=== PATIENT | female | born 1945 | race Hispanic/Latino ===

== ENCOUNTER 2017-03-15 16:25 | Inpatient (IN) | payer MEDICARE ==
[2017-03-15] MEDS ORDERED: ZOFRAN IV ONE (18:19)
[2017-03-15] MEDS ORDERED: DILAUDID IV ONE (18:19)
--- NOTE | 2017-03-15 18:35 | Emergency Department Report ---
- General Chief complaint: Skin/Abscess/Foreign Body Stated complaint: ABSCESS ON LOWER ABD AREA/CONT BLEEDING Time Seen by Provider: 03/15/17 18:10 Source: patient Mode of arrival: Wheelchair Limitations: No Limitations - History of Present Illness Initial comments: 71-year-old female with a past medical history stage IV cervical cancer currently under home hospice care without any current chemoradiation treatment, diabetes, GERD, hypertension, with previous gastric bypass, splenectomy, and hysterectomy presents to the Hospital complains of purulent bloody drainage from abdominal mass. Patient has had intra-abdominal mass to her lower abdomen for "a couple of months". Three days ago mass became more irritated and today noticed a copious amount of bloody purulent drainage. Pain is rated 7/10 intensity, constant, worse with palpation. No reports of fever. Hospice care group: [facility] - Related Data Home Medications Medication Instructions Recorded Confirmed Last Taken Levothyroxine [Synthroid] 100 mcg PO QPM 02/07/13 03/15/17 05/31/14 Lovastatin [Altoprev] 10 mg PO QPM 02/07/13 03/15/17 05/31/14 Warfarin [Coumadin] 1 mg PO QDAY 03/15/17 03/15/17 Unknown Warfarin [Coumadin] 5 mg PO QDAY 03/15/17 03/15/17 Unknown Allergies Allergy/AdvReac Type Severity Reaction Status Date / Time No Known Allergies Allergy Verified 06/01/14 14:23 Abscess Boil HPI - HPI Chief Complaint: Skin/Abscess/Foreign Body Stated Complaint: ABSCESS ON LOWER ABD AREA/CONT BLEEDING Time Seen by Provider: 03/15/17 18:10 Home Medications: Home Medications Medication Instructions Recorded Confirmed Last Taken Levothyroxine [Synthroid] 100 mcg PO QPM 02/07/13 03/15/17 05/31/14 Lovastatin [Altoprev] 10 mg PO QPM 02/07/13 03/15/17 05/31/14 Warfarin [Coumadin] 1 mg PO QDAY 03/15/17 03/15/17 Unknown Warfarin [Coumadin] 5 mg PO QDAY 03/15/17 03/15/17 Unknown Allergies/Adverse Reactions: Allergies Allergy/AdvReac Type Severity Reaction Status Date / Time No Known Allergies Allergy Verified 06/01/14 14:23 ED Review of Systems ROS: Stated complaint: ABSCESS ON LOWER ABD AREA/CONT BLEEDING Other details as noted in HPI Comment: All other systems reviewed and negative Other: Constitutional: No fevers chills Eyes: No eye pain visual changes ENT: No ear pain or throat pain Neck: Denies pain Respiratory: Denies cough wheezing shortness of breath Cardiovascular: Denies chest pain, palpitations, syncope GI: Denies nausea, vomiting, diarrhea : Denies dysuria Musculoskeletal: Denies back pain Skin: Denies rash, lesions, erythema Neurologic: Denies headache ED Past Medical Hx - Past Medical History Hx Hypertension: Yes Hx Diabetes: Yes (FOR 1 YR) Hx GERD: Yes Hx Arthritis: Yes Hx Asthma: No - Surgical History Hx Breast Surgery: Yes (SURESH BREAST BX 01/2013 ( CLIPS IN BREASTS) LEFT LUMPECTOMY) Additional Surgical History: GASTRIC BYPASS. SPLEENECTOMY. HYSTERECTOMY - Social History Smoking Status: Former Smoker Substance Use Type: None - Medications Home Medications: Home Medications Medication Instructions Recorded Confirmed Last Taken Type Levothyroxine [Synthroid] 100 mcg PO QPM 02/07/13 03/15/17 05/31/14 History Lovastatin [Altoprev] 10 mg PO QPM 02/07/13 03/15/17 05/31/14 History Warfarin [Coumadin] 1 mg PO QDAY 03/15/17 03/15/17 Unknown History Warfarin [Coumadin] 5 mg PO QDAY 03/15/17 03/15/17 Unknown History ED Physical Exam - General Limitations: No Limitations - Other Other exam information: General: No limitations, patient is alert in no acute distress Head exam: Atraumatic, normocephalic Eyes exam: Normal appearance ENT: Moist mucous membrane, normal oropharynx Neck exam: Normal inspection, full range of motion, no meningismus nontender Respiratory exam: Clear to auscultation bilateral, no wheezes, rales, crackles Cardiovascular: Normal rate and rhythm, normal heart sounds Abdomen: Soft, nondistended, large suprapubic mass with necrotic areas and malodorous drainage. Positive surrounding erythema. Tender to palpation Extremity: Full range of motion normal inspection no deformity Back: Normal Inspection, full range of motion, no tenderness Neurologic: Alert, oriented x3, cranial nerves intact, no motor or sensory deficit Psychiatric: normal affect, normal mood Skin: Warm, dry, intact ED Course Vital Signs 03/15/17 03/15/17 03/15/17 17:47 19:00 19:16 Temperature 97.9 F Pulse Rate 80 Respiratory Rate Blood Pressure 144/57 150/72 140/63 Blood Pressure [Left] O2 Sat by Pulse 100 100 91 Oximetry 03/15/17 03/15/17 19:22 21:39 Temperature Pulse Rate 77 74 Respiratory 18 11 L Rate Blood Pressure 147/72 Blood Pressure 144/57 [Left] O2 Sat by Pulse 100 100 Oximetry - Reevaluation(s) Reevaluation #1: 03/15/17 18:35 Vancomycin, Zosyn, Dilaudid, and Zofran ordered in the ED. Awaiting waiting lab to obtain CT - Consultations Consultation #1: 03/15/17 21:02 Case d/w oracle applications developer Surgeon Dr salinas, she was able to review images. Suggest that mass is likely a tumor implant that is highly vascular with an acute infection. Not amendable to simple I&D. Recommend IMV antibiotics and can evaluate patient tomorrow 23:15 Case d/w hospice nurse with [facility]. Jessica (RN) states she will send someone to rescind hospice status ED Medical Decision Making - Lab Data Result diagrams: 03/15/17 18:18 03/15/17 18:18 Lab Results 03/15/17 03/15/17 Range/Units 18:18 18:18 WBC 13.7 H (4.5-11.0) K/mm3 RBC 2.52 L (3.65-5.03) M/mm3 Hgb 8.1 L (10.1-14.3) gm/dl Hct 25.3 L (30.3-42.9) % MCV 101 H (79-97) fl MCH 32 (28-32) pg MCHC 32 (30-34) % RDW 16.4 H (13.2-15.2) % Plt Count 619 H (140-440) K/mm3 Lymph % (Auto) 14.7 (13.4-35.0) % [place] % (Auto) 10.0 H (0.0-7.3) % Eos % (Auto) 0.5 (0.0-4.3) % Baso % (Auto) 0.4 (0.0-1.8) % Lymph # 2.0 (1.2-5.4) K/mm3 [place] # 1.4 H (0.0-0.8) K/mm3 Eos # 0.1 (0.0-0.4) K/mm3 Baso # 0.0 (0.0-0.1) K/mm3 Seg Neutrophils % 74.4 H (40.0-70.0) % Seg Neutrophils # 10.2 H (1.8-7.7) K/mm3 Sodium 138 (137-145) mmol/L Potassium 4.6 (3.6-5.0) mmol/L Chloride 101.4 (98-107) mmol/L Carbon Dioxide 23 (22-30) mmol/L Anion Gap 18 mmol/L BUN 23 H (7-17) mg/dL Creatinine 0.9 (0.7-1.2) mg/dL Estimated GFR > 60 ml/min BUN/Creatinine Ratio 26 % Glucose 108 H (65-100) mg/dL Calcium 8.6 (8.4-10.2) mg/dL Total Bilirubin 0.30 (0.1-1.2) mg/dL AST 15 (5-40) units/L ALT 9 (7-56) units/L Alkaline Phosphatase 336 H (35-129) units/L Total Protein 6.5 (6.3-8.2) g/dL Albumin 2.7 L (3.9-5) g/dL Albumin/Globulin Ratio 0.7 % - Radiology Data Radiology results: report reviewed ct a/p IV contrast: There is a left superior pubis lobular necrotic adenopathy measuring 8.4X 10 cm and a J since matted inguinal adenopathy measures are 7.2 x 3.9 cm incompletely evaluated in the caudal extent. There may be an ulceration of the overlying skin. Patient has moderate left hydroureteronephrosis with appropriate place left double-J ureteral stent. Medical left lower abdominal/superpubic, inguinal, iliac, and obturator necrotic adenopathy in relation to the patient's cervical carcinoma. Erosion of the anterior cervical and L5 vertebral body. Ai mass measurements in the body of the report. Occlusion of the left common iliac artery stent which is compressed. The left common femoral and iliac vein are likely occluded and appear enlarged and hypodense. Diffuse body wall anasarca likely related to vascular occlusion. Multiple previous bowel resections hepatic metastasis. Persistent moderate pericardial effusion. Ill-defined 6 minute left lower lobe lung nodule - Medical Decision Making Patient is advanced cervical cancer and abdominal wall mass likely represent a lesion secondary to her cancer that is now necrotic and affected. Patient may not be a surgical candidate given advanced stage cancer. IV antibiotics were initiated. Surgery has been consults that it will see patient tomorrow - Differential Diagnosis abscess, necrotic cancer mass, cellulitis Critical Care Time: No Critical care attestation.: If time is entered above; I have spent that time in minutes in the direct care of this critically ill patient, excluding procedure time. ED Disposition Clinical Impression: Metastasis from cervical cancer, Abdominal wall mass, Abdominal wall abscess, Anemia, Elevated platelet count Disposition: OP ADMIT IP TO THIS HOSP Is pt being admited?: Yes Condition: Stable Time of Disposition: 23:23 (Dr Bowling/hosp)
[2017-03-15 18:39] LABS: Basophils % (Auto) 0.4 % (0.0-1.8); Eosinophils % (Auto) 0.5 % (0.0-4.3); Hematocrit 25.3 % (30.3-42.9); Hemoglobin 8.1 gm/dl (10.1-14.3); Mean Corpuscular HGB Conc 32 % (30-34); Mean Corpuscular Hemoglobin 32 pg (28-32); Mean Corpuscular Volume 101 fl (79-97); Platelet Count 619 K/mm3 (140-440); Red Blood Count 2.52 M/mm3 (3.65-5.03); Red Cell Distribution Width 16.4 % (13.2-15.2); White Blood Count 13.7 K/mm3 (4.5-11.0)
[2017-03-15 18:55] LABS: BUN/Creatinine Ratio 26; Blood Urea Nitrogen 23 mg/dL (7-17); Calcium 8.6 mg/dL (8.4-10.2); Carbon Dioxide 23 mmol/L (22-30); Glucose 108 mg/dL (65-100)
[2017-03-15 18:56] LABS: Alanine Aminotransferase 9 units/L (7-56); Albumin 2.7 g/dL (3.9-5); Albumin/Globulin Ratio 0.7 %; Alkaline Phosphatase 336 units/L (35-129); Anion Gap 18 mmol/L; Chloride 101.4 mmol/L (98-107); Potassium 4.6 mmol/L (3.6-5.0); Sodium 138 mmol/L (137-145); Total Protein 6.5 g/dL (6.3-8.2)
[2017-03-15] MEDS ORDERED: ZOSYN/NS 4.5GM/100ML 4.5 GM/100 ML VIAL IV ONE (19:00)
[2017-03-15] MEDS ORDERED: VANCOMYCIN/NS 1 GM/250 ML 1 GM/250 ML BAG IV ONE (19:00)
--- NOTE | 2017-03-15 20:26 | Cat Scan Report ---
FINAL REPORT EXAM: CT ABDOMEN PELVIS W CON HISTORY: lower abd mass/abscess hx stage IV cervical cancer TECHNIQUE: Axial images were performed from the lung bases to the pubic symphysis following administration of IV contrast. Multiplanar reformats are performed on the acquisition scanner. Comparison: 03/08/2013 FINDINGS: Cattle Manager image demonstrates left double-J ureteral stent. There is bilateral basal scar. There is an ill-defined 6 millimeter left lower lobe noncalcified pulmonary nodule. Again identified is moderate pericardial effusion. There are multiple hepatic hypodense lesions compatible with metastatic disease, the largest in the right lobe measuring 3.5 centimeters. Surgically absent spleen. Unremarkable and normally enhancing pancreas. Innumerable gallstones dependently throughout gallbladder. Fullness of the bilateral adrenal glands without discrete mass lesion. Unremarkable right kidney. Moderate left hydro nephrosis with left double-J ureteral stent in the appropriate position. Urinary bladder is minimally distended. There is anasarca of the left body wall. There has been previous gastric bypass with suture margin. There is been previous bowel resection with colonic suture margin. The aorta is atherosclerotic but not aneurysmal. Surgically absent uterus. There is a necrotic lobulated 5.2 x 3.5 centimeter left obturator lymph node and multiple necrotic lymph nodes of the left external iliac region measuring up to 3.6 centimeters. These lymph nodes surround a left common iliac stent and cause mass impression on it. It is likely occluded. There is retroperitoneal/presacral 5.2 x 3.6 centimeter mass eroding the anterior sacrum and L5 vertebral body extending to the midline. There is extensive matted left groin adenopathy measuring up to 10 centimeters with varicosities. There is left superior mons pubis adenopathy measuring 8.4 centimeters and adjacent matted adenopathy measuring 7.2 x 3.9 centimeters. The left common femoral vein is enlarged and hypodense, likely thrombosed. IMPRESSION: Moderate left hydroureteronephrosis with appropriately placed left double-J ureteral stent. Matted left lower abdominal/suprapubic, inguinal, iliac, and obturator necrotic adenopathy in relation to patient's cervical carcinoma. There is erosion of the anterior sacrum and L5 vertebral body. Ai mass measurements in body of report above. There is an occluded left common iliac artery stent which is compressed. The left common femoral and iliac vein are likely occluded and appear enlarged and hypodense. There is diffuse body wall anasarca on the left likely related to vascular occlusion. Multiple previous bowel resections. Innumerable hepatic metastases, largest in the right lobe measures 3.5 centimeters. Ill-defined 6 millimeter left lower lobe lung nodule. Persistent moderate pericardial effusion.
[2017-03-15] MEDS ORDERED: MORPHINE IV ONE (23:54)
[2017-03-15] MEDS ORDERED: MILK OF MAGNESIA PO PRN (23:56)
[2017-03-15] MEDS ORDERED: TYLENOL PO PRN (23:56)
[2017-03-15] MEDS ORDERED: DULCOLAX PR PRN (23:56)
[2017-03-15] MEDS ORDERED: ZOFRAN IV PRN (23:56)
--- NOTE | 2017-03-15 23:56 | History and Physical Report ---
History of Present Illness Date of examination: 03/15/17 History of present illness: 71-year-old woman history of hypertension, diabetes, hyperlipidemia, hypothyroidism, breast cancer, cervical cancer, chronic swelling of the left leg comes to emergency room because of a mass did develop on the abdomen over the last 1 month. The patient has been on hospice but has been discharged from hospice today because of excessive drainage from the abdominal mass. She states she has purulent, bloody discharge. No intervention has been done for this abdominal mass. Review Of Systems: Constitutional: no weight loss Ears, eyes, nose, mouth and throat: no nasal congestion, no nasal discharge, no sinus pressure, blurry vision, diplopia Neck: No neck pain or rigidity. Cardiovascular: no chest pain, orthopnea, palpitations Respiratory: No shortness of breath, cough Gastrointestinal: no abdominal pain, hematochezia Genitourinary : no dysuria, frequency , hematuria Musculoskeletal: no muscle ache Integumentary: no rash, no pruritis Neurological: no parathesias, focal weakness Endocrine: no cold or heat intolerance, no polyuria or polydipsia Hematologic/Lymphatic: no easy bruising, no easy bleeding, no gland swelling Allergic/Immunologic: no urticaria, no angioedema. PAST MEDICAL HISTORY:hypertension, diabetes, hyperlipidemia, hypothyroidism, breast cancer, cervical cancer PAST SURGICAL HISTORY: Gastric bypass, hysterectomy, splenectomy, lumpectomy FAMILY HISTORY: Hypertension SOCIAL HISTORY: Denies alcohol, tobacco, drugs Medications and Allergies Allergies Allergy/AdvReac Type Severity Reaction Status Date / Time No Known Allergies Allergy Verified 06/01/14 14:23 Home Medications Medication Instructions Recorded Confirmed Last Taken Type Levothyroxine [Synthroid] 125 mcg PO QAM 02/07/13 03/16/17 05/31/14 History Lovastatin [Altoprev] 10 mg PO QDAY 02/07/13 03/16/17 05/31/14 History Dorzolamide HCl/Timolol Maleat 1 drop OP BID 03/16/17 03/16/17 Unknown History [Cosopt Eye Drops] HYDROcodone/ACETAMINOPHEN 1 each PO Q6HR PRN 03/16/17 03/16/17 Unknown History [Hydrocodon-Acetaminophen 5-325] Latanoprost 0.005% [Xalatan 0.005%] 2 drop OP QPM 03/16/17 03/16/17 Unknown History Sennosides [Senna] 8.6 mg PO QHS PRN 03/16/17 03/16/17 Unknown History Diltiazem HCl [Diltiazem 24Hr Cd] 240 mg PO QDAY MDD 240 03/17/17 03/17/17 Unknown History Exam - Physical Exam Narrative exam: Gen. appearance: Patient lying in bed in no acute distress HEENT: Normocephalic/atraumatic, pupils equal round reactive to light, extra alkaline movement intact, no scleral icterus, no JVD or thyromegaly or nodule, neck is supple, mucous membrane moist, no erythema or exudate Heart: S1-S2, regular rate and rhythm Lungs: Clear to auscultation bilateral breathing comfortable Abdomen: Positive bowel sounds, raised abdominal mass with necrotic center to, tender, nondistended, no organomegaly Extremities: Left leg swollen , cyanosis, clubbing Neuro:: Oriented 3 , cranial nerves II-12 intact, speech, motor intact Skin: No rash, nodules, warm dry - Constitutional Vitals: Temp Pulse Resp BP Pulse Ox 97.9 F 74 11 L 147/72 100 03/15/17 17:47 03/15/17 21:39 03/15/17 21:39 03/15/17 21:39 03/15/17 21:39 Results - Labs CBC & Chem 7: 03/19/17 04:54 03/19/17 04:54 Labs: Abnormal lab results 03/15/17 03/15/17 Range/Units 18:18 18:18 WBC 13.7 H (4.5-11.0) K/mm3 RBC 2.52 L (3.65-5.03) M/mm3 Hgb 8.1 L (10.1-14.3) gm/dl Hct 25.3 L (30.3-42.9) % MCV 101 H (79-97) fl RDW 16.4 H (13.2-15.2) % Plt Count 619 H (140-440) K/mm3 [place] % (Auto) 10.0 H (0.0-7.3) % [place] # 1.4 H (0.0-0.8) K/mm3 Seg Neutrophils % 74.4 H (40.0-70.0) % Seg Neutrophils # 10.2 H (1.8-7.7) K/mm3 BUN 23 H (7-17) mg/dL Glucose 108 H (65-100) mg/dL Alkaline Phosphatase 336 H (35-129) units/L Albumin 2.7 L (3.9-5) g/dL - Imaging and Cardiology EKG: image reviewed CT scan - abdomen: report reviewed CT scan - pelvis: report reviewed Assessment and Plan Assessment Abdominal wall mass Metastatic cervical cancer Hypertension Diabetes Hyperlipidemia Breast cancer Hypothyroidism Chronic swelling of left leg Plan Admit to medicine Continue IV Zosyn, surgical consult Check fingersticks and initiate insulin scale Continue appropriate outpatient medications DVT prophylaxis
[2017-03-16] MEDS ORDERED: D50W (25GM) Vial IV PRN (00:20)
[2017-03-16] MEDS: MORPHINE IV PRN ×2 (01:56→12:20)
[2017-03-16] MEDS: ZOSYN/NS 3.375GM/50ML 3.375 GM/50 ML BAG IV SCH ×3 (05:42→22:35)
[2017-03-16 06:04] LABS: Basophils % (Auto) 0.6 % (0.0-1.8); Eosinophils % (Auto) 2.1 % (0.0-4.3); Hematocrit 20.7 % (30.3-42.9); Hemoglobin 6.6 gm/dl (10.1-14.3); Mean Corpuscular HGB Conc 32 % (30-34); Mean Corpuscular Hemoglobin 32 pg (28-32); Mean Corpuscular Volume 100 fl (79-97); Platelet Count 533 K/mm3 (140-440); Red Blood Count 2.08 M/mm3 (3.65-5.03); Red Cell Distribution Width 16.7 % (13.2-15.2); White Blood Count 11.8 K/mm3 (4.5-11.0)
[2017-03-16 06:23] LABS: Anion Gap 17 mmol/L; BUN/Creatinine Ratio 24; Blood Urea Nitrogen 22 mg/dL (7-17); Calcium 8.1 mg/dL (8.4-10.2); Carbon Dioxide 23 mmol/L (22-30); Chloride 103.5 mmol/L (98-107); Glucose 90 mg/dL (65-100); Potassium 4.3 mmol/L (3.6-5.0); Sodium 139 mmol/L (137-145)
[2017-03-16] MEDS ORDERED: NACL 0.9% 500 ML 500 ML IV ONE (11:00)
[2017-03-16] MEDS: NOVOLOG SUB-Q SCH ×4 (11:30→22:37)
[2017-03-16] MEDS ORDERED: Fluarix Quad 2017-2018(36 MOS+ IM ONE (12:00)
--- NOTE | 2017-03-16 13:15 | Consultation ---
History of Present Illness Consult date: 03/16/17 Chief complaint: abd wall mass - History of present illness History of present illness: 71-year-old female with a history of metastatic ovarian and cervical cancer diagnosed 2 years ago, status post total hysterectomy with bilateral salpingo- oophorectomy, radiation, chemotherapy, currently on hospice presents to the emergency room with complaints of an abdominal mass that's bleeding. She noted a mass several weeks ago and noted that it had gotten worse over the last week. Now it has started to ooze bloody fluid. She denies leakage of purulent material. She's been tolerating regular diet. She denies abdominal pain. She also complains of swelling of her left leg. No fevers, chills, chest pain, shortness of breath. She denies lightheadedness or dizziness. She's been ambulating. Past History Past Medical History: cancer (ovarian, cervical), hyperlipidemia, hypothyroidism Past Surgical History: hysterectomy, Other (bilateral salpingoophorectomy, port a cath) Social history: no significant social history Family history: no significant family history Medications and Allergies Allergies Allergy/AdvReac Type Severity Reaction Status Date / Time No Known Allergies Allergy Verified 06/01/14 14:23 Home Medications Medication Instructions Recorded Confirmed Last Taken Type Levothyroxine [Synthroid] 125 mcg PO QAM 02/07/13 03/16/17 05/31/14 History Lovastatin [Altoprev] 10 mg PO QDAY 02/07/13 03/16/17 05/31/14 History Warfarin [Coumadin] 2.5 mg PO QDAY 03/15/17 03/16/17 Unknown History Warfarin [Coumadin] 5 mg PO QDAY 03/15/17 03/15/17 Unknown History Dorzolamide HCl/Timolol Maleat 1 drop OP BID 03/16/17 03/16/17 Unknown History [Cosopt Eye Drops] HYDROcodone/ACETAMINOPHEN 1 each PO Q6HR PRN 03/16/17 03/16/17 Unknown History [Hydrocodon-Acetaminophen 5-325] Latanoprost 0.005% [Xalatan 0.005%] 2 drop OP QPM 03/16/17 03/16/17 Unknown History Sennosides [Senna] 8.6 mg PO QHS PRN 03/16/17 03/16/17 Unknown History Active Meds: Active Medications Acetaminophen (Tylenol) 650 mg PO Q4H PRN PRN Reason: Pain MILD(1-3)/Fever >100.5/SARABIA Bisacodyl (Dulcolax) 10 mg UT QDAY PRN PRN Reason: Constipation unrelieved by MOM Dextrose (D50w (25gm) Vial) 25 gm IV PRN PRN PRN Reason: Hypoglycemia Piperacillin Sod/Tazobactam Sod (Zosyn/Ns 3.375gm/50ml) 3.375 gm in 50 mls @ 100 mls/hr IV Q8HR ANU PRN Reason: Protocol Last Admin: 03/16/17 05:42 Dose: 100 mls/hr Insulin Aspart (Novolog) 0 units SUB-Q ACHS ANU PRN Reason: Protocol Last Admin: 03/16/17 12:37 Dose: Not Given Magnesium Hydroxide (Milk Of Magnesia) 30 ml PO Q4H PRN PRN Reason: Constipation Morphine Sulfate (Morphine) 2 mg IV Q4H PRN PRN Reason: Pain, Moderate (4-6) Last Admin: 03/16/17 12:20 Dose: 2 mg Ondansetron HCl (Zofran) 4 mg IV Q8H PRN PRN Reason: N/V unrelieved by Reglan Review of Systems All systems: negative (see hpi) Exam Vital Signs Temp Pulse BP Pulse Ox 97.9 F 80 144/57 100 03/15/17 17:47 03/15/17 17:47 03/15/17 17:47 03/15/17 17:47 Narrative exam: Gen: AAOx3. NAD CV: S1, S2+ Resp: No audible wheezes Abd: soft, NT, ND. Large approx 8 cm soft mass of lower abdomen/suprapubic region with serosanguenous fluid oozing from skin, 4-5 cm abdominal wound ulcerated skinn overlying mass with surrounding redness. Ext: LLE edema, nonpitting. Results - Labs 03/16/17 05:38 03/16/17 05:38 Abnormal lab results 03/15/17 03/15/17 03/16/17 Range/Units 18:18 18:18 05:38 WBC 13.7 H 11.8 H (4.5-11.0) K/mm3 RBC 2.52 L 2.08 L (3.65-5.03) M/mm3 Hgb 8.1 L 6.6 L (10.1-14.3) gm/dl Hct 25.3 L 20.7 L (30.3-42.9) % MCV 101 H 100 H (79-97) fl RDW 16.4 H 16.7 H (13.2-15.2) % Plt Count 619 H 533 H (140-440) K/mm3 [place] % (Auto) 10.0 H 12.4 H (0.0-7.3) % [place] # 1.4 H 1.5 H (0.0-0.8) K/mm3 Seg Neutrophils % 74.4 H (40.0-70.0) % Seg Neutrophils # 10.2 H (1.8-7.7) K/mm3 BUN 23 H (7-17) mg/dL Glucose 108 H (65-100) mg/dL POC Glucose (70-105) Calcium (8.4-10.2) mg/dL Alkaline Phosphatase 336 H (35-129) units/L Albumin 2.7 L (3.9-5) g/dL Crossmatch 03/16/17 03/16/17 03/16/17 Range/Units 05:38 11:14 11:20 WBC (4.5-11.0) K/mm3 RBC (3.65-5.03) M/mm3 Hgb (10.1-14.3) gm/dl Hct (30.3-42.9) % MCV (79-97) fl RDW (13.2-15.2) % Plt Count (140-440) K/mm3 [place] % (Auto) (0.0-7.3) % [place] # (0.0-0.8) K/mm3 Seg Neutrophils % (40.0-70.0) % Seg Neutrophils # (1.8-7.7) K/mm3 BUN 22 H (7-17) mg/dL Glucose (65-100) mg/dL POC Glucose 107 H (70-105) Calcium 8.1 L (8.4-10.2) mg/dL Alkaline Phosphatase (35-129) units/L Albumin (3.9-5) g/dL Crossmatch See Detail Diabetes panel 03/15/17 03/16/17 Range/Units 18:18 05:38 Sodium 138 139 (137-145) mmol/L Potassium 4.6 4.3 (3.6-5.0) mmol/L Chloride 101.4 103.5 (98-107) mmol/L Carbon Dioxide 23 23 (22-30) mmol/L BUN 23 H 22 H (7-17) mg/dL Creatinine 0.9 0.9 (0.7-1.2) mg/dL Glucose 108 H 90 (65-100) mg/dL Calcium 8.6 8.1 L (8.4-10.2) mg/dL AST 15 (5-40) units/L ALT 9 (7-56) units/L Alkaline Phosphatase 336 H (35-129) units/L Total Protein 6.5 (6.3-8.2) g/dL Albumin 2.7 L (3.9-5) g/dL Calcium panel 03/15/17 03/16/17 Range/Units 18:18 05:38 Calcium 8.6 8.1 L (8.4-10.2) mg/dL Albumin 2.7 L (3.9-5) g/dL Pituitary panel 03/15/17 03/16/17 Range/Units 18:18 05:38 Sodium 138 139 (137-145) mmol/L Potassium 4.6 4.3 (3.6-5.0) mmol/L Chloride 101.4 103.5 (98-107) mmol/L Carbon Dioxide 23 23 (22-30) mmol/L BUN 23 H 22 H (7-17) mg/dL Creatinine 0.9 0.9 (0.7-1.2) mg/dL Glucose 108 H 90 (65-100) mg/dL Calcium 8.6 8.1 L (8.4-10.2) mg/dL Adrenal panel 03/15/17 03/16/17 Range/Units 18:18 05:38 Sodium 138 139 (137-145) mmol/L Potassium 4.6 4.3 (3.6-5.0) mmol/L Chloride 101.4 103.5 (98-107) mmol/L Carbon Dioxide 23 23 (22-30) mmol/L BUN 23 H 22 H (7-17) mg/dL Creatinine 0.9 0.9 (0.7-1.2) mg/dL Glucose 108 H 90 (65-100) mg/dL Calcium 8.6 8.1 L (8.4-10.2) mg/dL Total Bilirubin 0.30 (0.1-1.2) mg/dL AST 15 (5-40) units/L ALT 9 (7-56) units/L Alkaline Phosphatase 336 H (35-129) units/L Total Protein 6.5 (6.3-8.2) g/dL Albumin 2.7 L (3.9-5) g/dL - Imaging CT scan - abdomen: report reviewed (1. there is left superior pubis lobular necrotic adenopathy measuring 8cm x10cm and adjacent matted inguinal adenopathy measuring 7.2 x 3.9 cm, incompletely evaluated in the caudal extent. There may be ulceration of the overlying skin), image reviewed CT scan - pelvis: report reviewed, image reviewed Assessment and Plan 71 yo F with 1. abdominal wall mass - necrotic lymphadenopathy related to patient's hx of metastatic ca 2. anemia 3. chronic pain Plan: 1. continue reg diet 2. conservative management for abdominal wall necrotic lymphadenopathy 3. wound care consult 4. dc iv ABX. Unlikely that this mass is infected 5. 1 unit PRBC ordered by primary team 6. recommend oncology consult 7. discussed plan with patient and her sister 8. patient may return to hospice once medically stable
[2017-03-16] MEDS ORDERED: NACL 0.9% 250ML 250 ML ONE (13:34)
--- NOTE | 2017-03-16 13:41 | Progress Note ---
Assessment and Plan Assessment and plan: 71-year-old female with a past medical history stage IV cervical cancer currently under home hospice care without any current chemoradiation treatment, diabetes, GERD, hypertension, with previous gastric bypass, splenectomy, and hysterectomy presents to the Hospital complains of purulent bloody drainage from abdominal mass. Acute blood loss anemia Secondary to abdominal wall mass that ruptured (wound ) Patient H&H dropped to 6.3 and transfused1 unit PRBC. hemodynamically stable Closely monitor CBC Sepsis Secondary to abdominal wound Flow Blood cultures Continue IV fluid Continue empiric IV Zosyn Abdominal wall mass secondary to stage cervical cancer The patient is on hospice Metastatic cervical cancer Continue on hospice Diabetes mellitus Accu-Chek before meals and at bedtime Sliding scale insulin/NovoLog ADA carbohydrate consistent diet Hypertensive urgency Continue home antihypertensive medications Closely monitor blood pressure Hyperlipidemia Continue on home antilipid agents Breast cancer continue on current therapy Hypothyroidism Resume Synthroid Chronic swelling of left leg Continue current therapy DVT prophylaxis -Heparin History Interval history: Patient denies having pain at preset time. Labs and nursing notes reviewed. Hospitalist Physical - Constitutional Vitals: Temp Pulse Resp BP Pulse Ox 98.4 F 78 20 126/58 100 03/16/17 07:30 03/16/17 07:51 03/16/17 12:20 03/16/17 07:30 03/16/17 07:51 General appearance: Present: no acute distress - EENT Eyes: Present: PERRL ENT: hearing intact - Neck Neck: Present: supple - Respiratory Respiratory effort: normal Respiratory: bilateral: CTA - Cardiovascular Rhythm: regular Heart Sounds: Present: S1 & S2 - Abdominal General gastrointestinal: soft, mass (with bleeding ), other - Integumentary Integumentary: Present: clear, warm, dry - Psychiatric Psychiatric: appropriate mood/affect - Neurologic Neurologic: moves all extremities - Allied Health Allied health notes reviewed: nursing Results - Labs CBC & Chem 7: 03/16/17 05:38 03/16/17 05:38 Labs: Laboratory Last Values WBC 11.8 K/mm3 (4.5-11.0) H 03/16/17 05:38 RBC 2.08 M/mm3 (3.65-5.03) L 03/16/17 05:38 Hgb 6.6 gm/dl (10.1-14.3) L 03/16/17 05:38 Hct 20.7 % (30.3-42.9) L 03/16/17 05:38 MCV 100 fl (79-97) H 03/16/17 05:38 MCH 32 pg (28-32) 03/16/17 05:38 MCHC 32 % (30-34) 03/16/17 05:38 RDW 16.7 % (13.2-15.2) H 03/16/17 05:38 Plt Count 533 K/mm3 (140-440) H 03/16/17 05:38 Lymph % (Auto) 24.2 % (13.4-35.0) 03/16/17 05:38 [place] % (Auto) 12.4 % (0.0-7.3) H 03/16/17 05:38 Eos % (Auto) 2.1 % (0.0-4.3) 03/16/17 05:38 Baso % (Auto) 0.6 % (0.0-1.8) 03/16/17 05:38 Lymph # 2.9 K/mm3 (1.2-5.4) 03/16/17 05:38 [place] # 1.5 K/mm3 (0.0-0.8) H 03/16/17 05:38 Eos # 0.3 K/mm3 (0.0-0.4) 03/16/17 05:38 Baso # 0.1 K/mm3 (0.0-0.1) 03/16/17 05:38 Seg Neutrophils % 60.7 % (40.0-70.0) 03/16/17 05:38 Seg Neutrophils # 7.2 K/mm3 (1.8-7.7) 03/16/17 05:38 Sodium 139 mmol/L (137-145) 03/16/17 05:38 Potassium 4.3 mmol/L (3.6-5.0) 03/16/17 05:38 Chloride 103.5 mmol/L (98-107) 03/16/17 05:38 Carbon Dioxide 23 mmol/L (22-30) 03/16/17 05:38 Anion Gap 17 mmol/L 03/16/17 05:38 BUN 22 mg/dL (7-17) H 03/16/17 05:38 Creatinine 0.9 mg/dL (0.7-1.2) 03/16/17 05:38 Estimated GFR > 60 ml/min 03/16/17 05:38 BUN/Creatinine Ratio 24 % 03/16/17 05:38 Glucose 90 mg/dL (65-100) 03/16/17 05:38 POC Glucose 107 (70-105) H 03/16/17 11:14 Calcium 8.1 mg/dL (8.4-10.2) L 03/16/17 05:38 Total Bilirubin 0.30 mg/dL (0.1-1.2) 03/15/17 18:18 AST 15 units/L (5-40) 03/15/17 18:18 ALT 9 units/L (7-56) 03/15/17 18:18 Alkaline Phosphatase 336 units/L (35-129) H 03/15/17 18:18 Total Protein 6.5 g/dL (6.3-8.2) 03/15/17 18:18 Albumin 2.7 g/dL (3.9-5) L 03/15/17 18:18 Albumin/Globulin Ratio 0.7 % 03/15/17 18:18 Blood Type O POSITIVE 03/16/17 11:20 Antibody Screen Negative 03/16/17 11:20 Crossmatch See Detail 03/16/17 11:20
[2017-03-16] MEDS: NORCO 10/325 PO PRN ×2 (18:27→22:36)
[2017-03-16 21:55] LABS: Hematocrit 24.1 % (30.3-42.9); Hemoglobin 7.9 gm/dl (10.1-14.3)
[2017-03-17 05:11] LABS: Basophils % (Auto) 0.2 % (0.0-1.8); Hematocrit 24.8 % (30.3-42.9); Hemoglobin 7.9 gm/dl (10.1-14.3); Mean Corpuscular HGB Conc 32 % (30-34); Mean Corpuscular Hemoglobin 31 pg (28-32); Mean Corpuscular Volume 98 fl (79-97); Platelet Count 523 K/mm3 (140-440); Red Blood Count 2.53 M/mm3 (3.65-5.03); Red Cell Distribution Width 17.3 % (13.2-15.2); White Blood Count 12.6 K/mm3 (4.5-11.0)
[2017-03-17 05:29] LABS: Calcium 8.5 mg/dL (8.4-10.2); Chloride 101.8 mmol/L (98-107); Potassium 4.8 mmol/L (3.6-5.0)
[2017-03-17] MEDS: ZOSYN/NS 3.375GM/50ML 3.375 GM/50 ML BAG IV SCH ×3 (06:36→22:10)
[2017-03-17] MEDS: NORCO 10/325 PO PRN ×3 (06:37→22:11)
[2017-03-17] MEDS: NOVOLOG SUB-Q SCH ×4 (08:30→22:15)
--- NOTE | 2017-03-17 13:31 | Progress Note ---
Assessment and Plan Assessment and plan: Patient is a 71-year-old female with a past medical history stage IV cervical cancer currently under home hospice care without any current chemoradiation treatment, diabetes, GERD, hypertension, with previous gastric bypass, splenectomy, and hysterectomy presents to the Hospital complains of purulent bloody drainage from abdominal mass. Abdominal wall mass Secondary to stage cervical cancer Patient has abdominal mass that ruptured. Wound care consult Patient is on hospice Mild Acute renal failure Gently hydration with IV fluid Repeat BMP in the AM Acute blood loss anemia Secondary to abdominal wall mass that ruptured (wound ) Patient H&H dropped to 6.3 and transfused1 unit PRBC. hemodynamically stable Closely monitor CBC Sepsis Secondary to abdominal wound Flow Blood cultures Continue IV fluid Continue empiric IV Zosyn Metastatic cervical cancer Continue on hospice Diabetes mellitus Accu-Chek before meals and at bedtime Sliding scale insulin/NovoLog ADA carbohydrate consistent diet Hypertensive urgency Continue home antihypertensive medications Closely monitor blood pressure Hyperlipidemia Continue on home antilipid agents Breast cancer continue on current therapy Hypothyroidism Resume Synthroid Chronic swelling of left leg Continue current therapy DVT prophylaxis -Heparin History Interval history: Patient denies having pain at present time; Lab and nursing notes reviewed. Hospitalist Physical - Constitutional Vitals: Temp Pulse Resp BP Pulse Ox 98.8 F 73 20 138/50 97 03/17/17 07:36 03/17/17 07:36 03/17/17 07:37 03/17/17 07:36 03/17/17 07:36 General appearance: Present: no acute distress - EENT Eyes: Present: PERRL ENT: hearing intact - Neck Neck: Present: supple - Respiratory Respiratory effort: normal Respiratory: bilateral: CTA - Cardiovascular Rhythm: regular Heart Sounds: Present: S1 & S2 - Abdominal General gastrointestinal: soft, non-tender, other (abdominal wound with bloody drainage covered with gauze dressing.) - Integumentary Integumentary: Present: clear, warm, dry - Psychiatric Psychiatric: appropriate mood/affect - Neurologic Neurologic: moves all extremities - Allied Health Allied health notes reviewed: nursing Results - Labs CBC & Chem 7: 03/17/17 04:17 12 04:17 Labs: Laboratory Last Values WBC 12.6 K/mm3 (4.5-11.0) H 03/17/17 04:17 RBC 2.53 M/mm3 (3.65-5.03) L 03/17/17 04:17 Hgb 7.9 gm/dl (10.1-14.3) L 03/17/17 04:17 Hct 24.8 % (30.3-42.9) L 03/17/17 04:17 MCV 98 fl (79-97) H 03/17/17 04:17 MCH 31 pg (28-32) 03/17/17 04:17 MCHC 32 % (30-34) 03/17/17 04:17 RDW 17.3 % (13.2-15.2) H 03/17/17 04:17 Plt Count 523 K/mm3 (140-440) H 03/17/17 04:17 Lymph % (Auto) 27.4 % (13.4-35.0) 03/17/17 04:17 [place] % (Auto) 12.6 % (0.0-7.3) H 03/17/17 04:17 Eos % (Auto) 3.0 % (0.0-4.3) 03/17/17 04:17 Baso % (Auto) 0.2 % (0.0-1.8) 03/17/17 04:17 Lymph # 3.5 K/mm3 (1.2-5.4) 03/17/17 04:17 [place] # 1.6 K/mm3 (0.0-0.8) H 03/17/17 04:17 Eos # 0.4 K/mm3 (0.0-0.4) 03/17/17 04:17 Baso # 0.0 K/mm3 (0.0-0.1) 03/17/17 04:17 Seg Neutrophils % 56.8 % (40.0-70.0) 03/17/17 04:17 Seg Neutrophils # 7.2 K/mm3 (1.8-7.7) 03/17/17 04:17 Sodium 139 mmol/L (137-145) 03/17/17 04:17 Potassium 4.8 mmol/L (3.6-5.0) 03/17/17 04:17 Chloride 101.8 mmol/L (98-107) 03/17/17 04:17 Carbon Dioxide 24 mmol/L (22-30) 03/17/17 04:17 Anion Gap 18 mmol/L 03/17/17 04:17 BUN 19 mg/dL (7-17) H 03/17/17 04:17 Creatinine 1.0 mg/dL (0.7-1.2) 03/17/17 04:17 Estimated GFR 55 ml/min 03/17/17 04:17 BUN/Creatinine Ratio 19 % 03/17/17 04:17 Glucose 81 mg/dL (65-100) 03/17/17 04:17 POC Glucose 102 (70-105) 03/17/17 11:43 Calcium 8.5 mg/dL (8.4-10.2) 03/17/17 04:17 Total Bilirubin 0.30 mg/dL (0.1-1.2) 03/15/17 18:18 AST 15 units/L (5-40) 03/15/17 18:18 ALT 9 units/L (7-56) 03/15/17 18:18 Alkaline Phosphatase 336 units/L (35-129) H 03/15/17 18:18 Total Protein 6.5 g/dL (6.3-8.2) 03/15/17 18:18 Albumin 2.7 g/dL (3.9-5) L 03/15/17 18:18 Albumin/Globulin Ratio 0.7 % 03/15/17 18:18 Blood Type O POSITIVE 03/16/17 11:20 Antibody Screen Negative 03/16/17 11:20 Crossmatch See Detail 03/16/17 11:20
[2017-03-17] MEDS: NACL 0.9% 1000 ML 500 ML IV SCH (22:15)
[2017-03-18 00:37] LABS: Bilirubin,Urine NEG (Negative); Blood,Urine MOD (Negative); Ketones,Urine NEG (Negative); Leukocyte Esterase,Urine NEG (Negative); Nitrite,Urine NEG (Negative); Protein,Urine <15 mg/dL mg/dL (Negative); Urobilinogen,Urine < 2.0 mg/dL (<2.0); WBC,Urine < 1.0 /HPF (0.0-6.0)
[2017-03-18] MEDS: NORCO 10/325 PO PRN ×4 (04:34→20:16)
[2017-03-18 05:28] LABS: Basophils % (Auto) 0.4 % (0.0-1.8); Eosinophils % (Auto) 2.7 % (0.0-4.3); Hematocrit 24.6 % (30.3-42.9); Hemoglobin 7.8 gm/dl (10.1-14.3); Mean Corpuscular HGB Conc 32 % (30-34); Mean Corpuscular Hemoglobin 32 pg (28-32); Mean Corpuscular Volume 99 fl (79-97); Platelet Count 460 K/mm3 (140-440); Red Blood Count 2.48 M/mm3 (3.65-5.03); Red Cell Distribution Width 17.2 % (13.2-15.2); White Blood Count 13.3 K/mm3 (4.5-11.0)
[2017-03-18 05:45] LABS: Calcium 8.5 mg/dL (8.4-10.2); Chloride 100.9 mmol/L (98-107); Potassium 5.3 mmol/L (3.6-5.0)
[2017-03-18] MEDS: ZOSYN/NS 3.375GM/50ML 3.375 GM/50 ML BAG IV SCH ×3 (06:50→22:34)
[2017-03-18] MEDS: NOVOLOG SUB-Q SCH ×4 (08:00→23:18)
[2017-03-18] MEDS ORDERED: KIONEX PO NR (10:00)
[2017-03-18] MEDS: NACL 0.9% 1000 ML 500 ML IV SCH (18:54)
[2017-03-19] MEDS: NORCO 10/325 PO PRN ×3 (04:30→13:16)
[2017-03-19] MEDS: ZOSYN/NS 3.375GM/50ML 3.375 GM/50 ML BAG IV SCH ×2 (05:18→13:17)
[2017-03-19 05:57] LABS: Basophils % (Auto) 0.3 % (0.0-1.8); Eosinophils % (Auto) 2.5 % (0.0-4.3); Hematocrit 23.5 % (30.3-42.9); Hemoglobin 7.6 gm/dl (10.1-14.3); Mean Corpuscular HGB Conc 32 % (30-34); Mean Corpuscular Hemoglobin 33 pg (28-32); Mean Corpuscular Volume 101 fl (79-97); Platelet Count 336 K/mm3 (140-440); Red Blood Count 2.33 M/mm3 (3.65-5.03); Red Cell Distribution Width 17.9 % (13.2-15.2); White Blood Count 12.1 K/mm3 (4.5-11.0)
[2017-03-19 06:09] LABS: Chloride 103.4 mmol/L (98-107); Potassium 4.4 mmol/L (3.6-5.0)
--- NOTE | 2017-03-19 08:00 | Progress Note ---
Assessment and Plan Assessment and plan: PROGRESS NOTE FOR 03/18/17 71-year-old female with stage IV cervical cancer currently under home hospice care presented for lower abdomen mass with bloody drainage Abdominal wall mass CT abdomen obtained and Surgery consulted C/w necrotic lymphadenopathy; surgical intervention indicated Wound care nurse consulted for local care Anemia Acute blood loss anemia superimposed of anemia of chronic disease/malignancy Hgb down to 6.3 Status post 1 unit PRBC Monitoring the H&H Acute renal failure Gently iv hydration Hyperkalemia Give Kayexalate and recheck Diabetes mellitus Accu-Cheks and SSI Hypothyroidism On Synthroid Hyperlipidemia On statin Stage IV metastatic cervical cancer On hospice DVT prophylaxis History Interval history: no new issues or complaints; caregiver at bedside; all their questions answered Hospitalist Physical - Constitutional Vitals: Temp Pulse Resp BP Pulse Ox 97.6 F 79 16 120/53 100 03/18/17 19:39 03/18/17 19:39 03/19/17 04:30 03/18/17 19:39 03/18/17 22:00 General appearance: Present: no acute distress - EENT Eyes: Present: PERRL, EOM intact - Neck Neck: Present: supple, normal ROM. Absent: masses or JVD - Respiratory Respiratory effort: normal Respiratory: bilateral: CTA, negative: rhonchi, wheezing - Cardiovascular Rhythm: regular Heart Sounds: Present: S1 & S2. Absent: systolic murmur - Extremities Extremities: no ischemia Extremity abnormal: edema - Abdominal General gastrointestinal: soft, non-tender, non-distended, normal bowel sounds, other (lower abd mass with serous/bloody drainage; dressing in place) - Integumentary Integumentary: Present: pale - Psychiatric Psychiatric: cooperative - Neurologic Neurologic: CNII-XII intact, no focal deficits Results - Labs CBC & Chem 7: 03/19/17 04:54 03/19/17 04:54 Labs: Laboratory Last Values WBC 12.1 K/mm3 (4.5-11.0) H 03/19/17 04:54 RBC 2.33 M/mm3 (3.65-5.03) L 03/19/17 04:54 Hgb 7.6 gm/dl (10.1-14.3) L 03/19/17 04:54 Hct 23.5 % (30.3-42.9) L 03/19/17 04:54 MCV 101 fl (79-97) H 03/19/17 04:54 MCH 33 pg (28-32) H 03/19/17 04:54 MCHC 32 % (30-34) 03/19/17 04:54 RDW 17.9 % (13.2-15.2) H 03/19/17 04:54 Plt Count 336 K/mm3 (140-440) 03/19/17 04:54 Lymph % (Auto) 27.4 % (13.4-35.0) 03/19/17 04:54 [place] % (Auto) 10.3 % (0.0-7.3) H 03/19/17 04:54 Eos % (Auto) 2.5 % (0.0-4.3) 03/19/17 04:54 Baso % (Auto) 0.3 % (0.0-1.8) 03/19/17 04:54 Lymph # 3.3 K/mm3 (1.2-5.4) 03/19/17 04:54 [place] # 1.3 K/mm3 (0.0-0.8) H 03/19/17 04:54 Eos # 0.3 K/mm3 (0.0-0.4) 03/19/17 04:54 Baso # 0.0 K/mm3 (0.0-0.1) 03/19/17 04:54 Seg Neutrophils % 59.5 % (40.0-70.0) 03/19/17 04:54 Seg Neutrophils # 7.2 K/mm3 (1.8-7.7) 03/19/17 04:54 Sodium 140 mmol/L (137-145) 03/19/17 04:54 Potassium 4.4 mmol/L (3.6-5.0) 03/19/17 04:54 Chloride 103.4 mmol/L (98-107) 03/19/17 04:54 Carbon Dioxide 21 mmol/L (22-30) L 03/19/17 04:54 Anion Gap 20 mmol/L 03/19/17 04:54 BUN 18 mg/dL (7-17) H 03/19/17 04:54 Creatinine 1.0 mg/dL (0.7-1.2) 03/19/17 04:54 Estimated GFR 55 ml/min 03/19/17 04:54 BUN/Creatinine Ratio 18 % 03/19/17 04:54 Glucose 83 mg/dL (65-100) 03/19/17 04:54 POC Glucose 87 (70-105) 03/19/17 07:48 Calcium 8.0 mg/dL (8.4-10.2) L 03/19/17 04:54 Total Bilirubin 0.30 mg/dL (0.1-1.2) 03/15/17 18:18 AST 15 units/L (5-40) 03/15/17 18:18 ALT 9 units/L (7-56) 03/15/17 18:18 Alkaline Phosphatase 336 units/L (35-129) H 03/15/17 18:18 Total Protein 6.5 g/dL (6.3-8.2) 03/15/17 18:18 Albumin 2.7 g/dL (3.9-5) L 03/15/17 18:18 Albumin/Globulin Ratio 0.7 % 03/15/17 18:18 Urine Color Yellow (Yellow) 03/18/17 00:00 Urine Turbidity Clear (Clear) 03/18/17 00:00 Urine pH 5.0 (5.0-7.0) 03/18/17 00:00 Ur Specific [place] 1.012 (1.003-1.030) 03/18/17 00:00 Urine Protein <15 mg/dl mg/dL (Negative) 03/18/17 00:00 Urine Glucose (UA) Neg mg/dL (Negative) 03/18/17 00:00 Urine Ketones Neg mg/dL (Negative) 03/18/17 00:00 Urine Blood Mod (Negative) 03/18/17 00:00 Urine Nitrite Neg (Negative) 03/18/17 00:00 Urine Bilirubin Neg (Negative) 03/18/17 00:00 Urine Urobilinogen < 2.0 mg/dL (<2.0) 03/18/17 00:00 Ur Leukocyte Esterase Neg (Negative) 03/18/17 00:00 Urine WBC (Auto) < 1.0 /HPF (0.0-6.0) 03/18/17 00:00 Urine RBC (Auto) 2.0 /HPF (0.0-6.0) 03/18/17 00:00 U Epithel Cells (Auto) < 1.0 /HPF (0-13.0) 03/18/17 00:00 Blood Type O POSITIVE 03/16/17 11:20 Antibody Screen Negative 03/16/17 11:20 Crossmatch See Detail 03/16/17 11:20
--- NOTE | 2017-03-19 09:23 | Discharge Summary ---
Providers - Providers Date of Admission: 03/15/17 23:56 Date of discharge: 03/19/17 Attending physician: ANSLEY BRANDT 03/15/17 23:25 Consult to Physician [CONS] Urgent Consulting Provider: CARA GACRIAS Reason For Exam: necrotic abd wall mass Notified:: y 03/16/17 07:00 Consult to Wound/ET Nurse [CONS] Routine Reason For Exam: wound eval (Abdomen) Primary care physician: [employer] Hospitalization Reason for admission: abdominal mass with drainage Condition: Stable Pertinent studies: CT abdomen/pelvis Hospital course: Patient is a 71-year-old female with stage IV metastatic cervical cancer currently under home hospice care who presented for lower abdomen mass with bloody drainage. CT abdomen/pelvis was obtained and Surgery consulted; mass consistent with necrotic lymphadenopathy; no surgical intervention indicated, only wound care. She also had acute blood loss anemia superimposed on her anemia of chronic disease/malignancy that required 1 unit PRBC transfusion; received gentle IV hydration for acute kidney injury due to volume depletion and had medically treated hyperkalemia. Discharged to home hospice with local wound care. Discharge diagnoses: Abdominal wall mass Stage IV metastatic cervical cancer Anemia Acute renal failure Hyperkalemia Diabetes mellitus Hypothyroidism Hyperlipidemia Disposition: DC-50 TO HOSPICE (HOME) Time spent for discharge: 35 min Core Measure Documentation - Palliative Care Palliative Care/ Comfort Measures: Hospice Care - Core Measures Any of the following diagnoses?: none Exam - Physical Exam Narrative exam: Seen and examined: - Constitutional Vitals: Temp Pulse Resp BP Pulse Ox 98.6 F 69 18 122/59 96 03/19/17 08:04 03/19/17 08:04 03/19/17 08:04 03/19/17 08:04 03/19/17 08:04 General appearance: Present: no acute distress - EENT Eyes: Present: PERRL, EOM intact - Neck Neck: Present: supple, normal ROM. Absent: masses or JVD - Respiratory Respiratory effort: normal Respiratory: bilateral: CTA, negative: rhonchi, wheezing - Cardiovascular Rhythm: regular Heart Sounds: Present: S1 & S2. Absent: systolic murmur - Extremities Extremities: no ischemia Extremity abnormal: edema - Abdominal General gastrointestinal: Present: soft, non-tender, non-distended, normal bowel sounds, other (suprapubic mass with spontaneous drainage; dressing in place) - Integumentary Integumentary: Present: pale - Musculoskeletal Musculoskeletal: generalized weakness - Psychiatric Psychiatric: cooperative - Neurologic Neurologic: CNII-XII intact, no focal deficits Plan Activity: advance as tolerated, fall precautions Diet: regular Additional Instructions: Hospice physician taking over patient's care Follow up with: PRIMARY CARE, [Primary Care Provider] - 3-5 Days
--- NOTE | 2017-03-19 11:27 | Query- Nutrition ---
Jesús Munroe Date:___03/19/2017 Inspector Final Assembly Mechanical/CDS:___Echo Phone#:___[phone] Exercise your independent professional judgment when responding to query. Questions asked do not imply a particular answer is desired or expected. We greatly appreciate your clarification on this issue. Clinical Documentation States: 71 Year old female was admitted on 03/15/2017 for lower abdomen mass with bloody drainage. The Discharge summary states "Discharge diagnoses: Abdominal wall mass Stage IV metastatic cervical cancer." Clinical Findings Show: Albumin: 2.7 Please select the most appropriate option 3 [] Mild Malnutrition [] Mild - Moderate Malnutrition [x] Moderate - Severe Malnutrition [] Severe Malnutrition Serum Albumin 2.8 to 3.4 g/dl or Pre-albumin 5 to 17 mg/dl1,2 Inadequate nutritional intake1,2,3,4 NPO > 5 days Weight loss: 5% in 1 month or 7.5% in 3 months or 10% in 6 months1, 3,4 BMI 16 to 18.4 or Weight <90% of ideal body weight1,2,3,4 Serum Albumin < 2.8 g/ dl1,2 Lymphocytes < 1500/ L2 Inadequate nutritional intake3, high stress e.g. major trauma, sepsis,pancreatitis, [place] etc. Decubitus ulcers1,2, , skin breakdown2, easy hair pluckability2 Weight <80% standard for height2 Triceps skin fold <3 mm2 Mid-arm muscle circumference <15 cm2 Creatinine-height index <60% standard2 [ ] Cachexia [ ] Emaciated w/Malnutrition [ ] Other: [ ] Unable to determine [ ] Comment/Explanation: Present on Admission: [x ] Yes (Y) [ ] Clinically undeterminable (W) [ ] No (N) Please also document response in your Progress Notes and/or Discharge Summary and indicate if the condition was present on admission. MTDD
--- NOTE | 2017-03-19 11:29 | Query- Renal Failure ---
[address] Date:__03/19/2017 Record Press Operator/MARNIE:___Echo Phone#:__[phone] Exercise your independent professional judgment when responding to query. Questions asked do not imply a particular answer is desired or expected. We greatly appreciate your clarification on this issue. Clinical Documentation States: 71 Year old female was admitted on 03/15/2017 for lower abdomen mass with bloody drainage. The Discharge summary states "Acute renal failure." Please clarify if you mean: Acute Renal Failure with or due to: [ ] Tubular Necrosis [ ] Medullary Necrosis [x ] Vasomotor Nephropathy [ ] Shock Kidney [ ] Tubular Nephrosis [ ] Renal Tubular Stasis [ ] Cortical Necrosis [ ] Acute Renal Failure (unspecified) [ ] Lower Tubular Nephrosis [ ] Other: [ ] Not Applicable Present on Admission: [x ] Yes (Y) [ ] Clinically undeterminable (W) [ ] No (N) Please also document response in your Progress Notes and/or Discharge Summary and indicate if the condition was present on admission. LIU
[2017-03-19] MEDS: NOVOLOG SUB-Q SCH (12:19)
[2017-03-19 16:55] VITALS: BP 141/63
== END 2017-03-19 16:28 | disposition home or self-care (01) | DRG 871 ==
LOC: ED 16:25 → 2B-ACE 23:56
PROVIDERS: ADMIT Internal Medicine; ATTEND Internal Medicine
PROC: 3E0234Z Introduction of Serum, Toxoid and Vaccine into Muscle, Percutaneous Approach (ICD-10-PCS; principal; 2017-03-16)
PROC: 30233N1 Transfusion of Nonautologous Red Blood Cells into Peripheral Vein, Percutaneous Approach (ICD-10-PCS; 2017-03-16)
DX: A41.9 Sepsis, unspecified organism (principal); N17.0 Acute kidney failure with tubular necrosis; E43 Unspecified severe protein-calorie malnutrition; D62 Acute posthemorrhagic anemia; I10 Essential (primary) hypertension; E78.5 Hyperlipidemia, unspecified; C53.9 Malignant neoplasm of cervix uteri, unspecified; D63.8 Anemia in other chronic diseases classified elsewhere; E03.9 Hypothyroidism, unspecified; I16.0 Hypertensive urgency; E11.9 Type 2 diabetes mellitus without complications; K21.9 Gastro-esophageal reflux disease without esophagitis; S31.109A Unspecified open wound of abdominal wall, unspecified quadrant without penetration into peritoneal cavity, initial encounter; X58.XXXA Exposure to other specified factors, initial encounter; Z23 Encounter for immunization; Z68.32 Body mass index [BMI] 32.0-32.9, adult; Z90.710 Acquired absence of both cervix and uterus; Z90.81 Acquired absence of spleen; Z79.01 Long term (current) use of anticoagulants; Z90.722 Acquired absence of ovaries, bilateral; Y93.89 Activity, other specified; Y92.89 Other specified places as the place of occurrence of the external cause; Y99.8 Other external cause status
CPT/HCPCS: 36415; 74177; 80048; 80053; 81001; 82962; 85018; 85025; 86850; 86900; 86901; 86920; 87040; 87086; 90471; 90686; 96365; 96375; 99285; G0008; J1170; J2270; J2405; J2543; J3370; J7030; J7050; P9016; Q9967